=== PATIENT | female | born 1995 | race Hispanic/Latino ===

== ENCOUNTER 2019-06-23 13:25 | Emergency (ER) | payer SELFPAY ==
--- OUTSIDE RECORDS SUMMARY | 2019-06-23 13:27 | XMS REPORT ---
:1995 Author Organization [facility] Address [address] [place] [address] Care Team Providers Name Role Phone AMANDA DAVIS Unavailable Unavailable Problems This patient has no known problems. Allergies, Adverse Reactions, Alerts This patient has no known allergies or adverse reactions. Medications This patient has no known medications. Results Test Description Test Time Test Comments Text Results Atomic Results Result Comments AMYLASE AND LIPASE 2017-06-26 19:31:00 Test Item Value Reference Range Comments AMYLASE (test code=10A) 39 U/L 28-100 LIPASE (test code=60A) 229 IU/L 73-393 COMPREHENSIVE METABOLIC [id number] 19:31:00 Test Item Value Reference Range Comments GLUCOSE (test code=06D) 84 mg/dL 75-100 SODIUM (test code=01A) 136 mmol/L 136-145 POTASSIUM (test code=01B) 3.5 mmol/L 3.6-5.1 CHLORIDE (test code=04A) 104 mmol/L 98-107 CO2 (test code=02A) 24 mmol/L 22-32 ANION GAP (test code=ANG) 11.5 mmol/L BUN (test code=05D) 13 mg/dL 7-18 CREATININE (test code=03E) 0.7 mg/dL 0.4-1.1 BUN/CREA (test code=BCR) 18 12-20 CALCIUM (test code=09D) 9.1 mg/dL 8.3-9.5 BILI TOTAL (test code=11A) 0.8 mg/dL 0.2-1.0 PROTEIN (test code=07D) 8.6 g/dL 6.4-8.2 ALBUMIN (test code=08D) 4.1 g/dL 3.5-4.8 GLOBULIN (test code=GLB) 4.5 g/dL 1.5-3.8 ALB/GLOB (test code=AGRR) 0.9 1.0-2.6 ALK PHOS (test code=35A) 155 IU/L 42-121 AST (test code=30A) 23 IU/L <=42 ALT (test code=31A) 34 IU/L <=78 CT STONE PROTOCOL [id number] 19:14:34CT SCAN OF THE ABDOMEN AND PELVIS WITHOUT CONTRASTLocation: [id number] HISTORY: Right flank pain with history of kidney stoneTECHNIQUE: Helical CT of the abdomen and pelvis was performed without IV ororal contrast without complication. Coronal and Sagittal reconstructions wereobtained. Up-to-date CT equipment, automatic exposure control, and radiationdose reduction techniques were utilized.DLP: 789 mGY* cmComparison study 12/31/15FINDINGS:The visualized lung bases are clear. No evidence of pleural effusion. Liveris normal in size without intrahepatic biliary dilatation or focal mass. Thegallbladder is surgically absent. Pancreas , spleen, and adrenal glands arenormal. There is no evidence of hydronephrosis, solid renal mass , orobstructing kidney stone. There is no evidence of pancreatic mass, atrophy,calcification. There is no abdominal free fluid or adenopathy.The bowel is unremarkable without wall thickening or dilatation. There is noevidence of appendicitis, diverticulitis, colitis or bowel obstruction. Normalair-filled appendix is seen on axial image 87. There is obesity.In the pelvis, there is no free fluid or adenopathy present. The bladder andureters are normal. Uterus and adnexa are unremarkable. A tiny phlebolithposterior to the bladder is unchanged compared to prior study.The vascular, bony and muscular structures are unremarkable. IMPRESSION:1. No evidence of urolithiasis or hydronephrosis on the current study.2. No acute findings demonstrated. Prior cholecystectomy. Normal appendix. SERUM [id number] 18:48:00 Test Item Value Reference Range Comments PREG SRM (test code=PGS) NEGATIVE NEGATIVE PRO TIME AND [id number] 18:46:00 Test Item Value Reference Range Comments PT (test code=TT) 11.4 s 9.8-13.6 INR (test code=INR) 1.0 INRH (test code=INRH) SUGGESTED THERAPEUTIC RANGE FOR INR: 2.5 - 3.5 For Patients with Prosthetic Valves or Patients with recurrent Thromboembolic Events 2.0 - 3.0 For Most Other Applications PTT (test code=PTT) 33.6 s 20.2-38.0 PTTH (test code=PTTH) To monitor the effectiveness of heparin, we offer the Anti-Xa (Heparin Assay). It can be used for either unfractionated or LMW Heparin. Order Code is ANTI-XA URINALYSIS WITH [id number] 18:40:00 Test Item Value Reference Range Comments COLOR (test code=COLU) YELLOW YELLOW CLARITY (test code=CLA) CLOUDY CLEAR GLUCOSE UR (test code=UA GLUCOSE) NEGATIVE NEGATIVE BILI UR (test code=BILE) NEGATIVE NEGATIVE KETONES UR (test code=MAINOR) NEGATIVE NEGATIVE SP GRAVITY (test code=SPGR) 1.038 1.005-1.030 PH UR (test code=PH) 6.0 4.5-8.0 PROTEIN UR (test code=PU) NEGATIVE NEGATIVE UROBIL UR (test code=UROQ) 1.0 EU/dL 0.2-1.0 NITRITE UR (test code=NITRITE) NEGATIVE NEGATIVE BLOOD UR (test code=UA BLOOD) TRACE NEGATIVE LEUK ES UR (test code=LEUK) NEGATIVE NEGATIVE WBC UR (test code=UWBC) 4 /HPF 0-5 RBC UR (test code=URBC) 4 /HPF 0-2 EPITH UR (test code=UEPC) FEW /LPF FEW BACTERIA UR (test code=UBACT) MODERATE /HPF NONE CAST UR (test code=CAST) /LPF NONE CRYSTAL UR (test code=CRYU) / LPF NONE MUCUS UR (test code=MUC) / HPF NONE AMORPH UR (test code=LAURY) / HPF NONE TRICH UR (test code=UTRICH) /HPF NONE YEAST UR (test code=UY) /HPF NONE SPERM UR (test code=USPERM) /HPF NONE CBC (INCLUDES AUTOMATED DIFFERENTIAL)2017-06-26 18:37:00 Test Item Value Reference Range Comments WBC (test code=WBC) 15.4 10\S\3/uL 4.5-11.0 RBC (test code=RBC) 4.94 10\S\6/uL 4.30-5.70 HGB (test code=HBG) 14.6 g/dL 12.0-15.5 HCT (test code=HCT) 43.3 % 35.0-44.0 MCV (test code=MCV) 87.7 fL 81.0-99.0 MCH (test code=MCH) 29.6 pg 27.0-31.0 MCHC (test code=MCHC) 33.7 g/dL 32.0-36.0 RDW (test code=RDW) 13.2 % 11.5-14.5 PLT (test code=PLT) 333 10\S\3/uL 130-400 MPV (test code=MPV) 9.8 fL 9.4-12.4 NEUTROP # (test code=NE#) 10.0 10\S\3/uL 1.6-8.0 LYMPH # (test code=LY#) 4.1 10\S\3/uL 1.1-3.5 MONOCYTE # (test code=MO#) 1.0 10\S\3/uL 0.0-1.1 EOSINOPH # (test code=EO#) 0.2 10\S\3/uL 0.0-0.7 BASOPHIL # (test code=BA#) 0.1 10\S\3/uL 0.0-0.3 IG # (test code=IG#) 0.08 10\S\3/uL 0.00-0.06 NRBC # (test code=NRBC#) 0.00 10\S\3/uL 0.00-0.01 NEUTROPH % (test code=NE%) 64.9 % 35.0-73.0 LYMPH % (test code=LY%) 26.3 % 20.0-55.0 MONO % (test code=MO%) 6.3 % 2.5-10.0 EOSINOPH % (test code=EO%) 1.4 % 0.0-5.0 BASOPHIL % (test code=BA%) 0.6 % 0.0-2.0 IG % (test code=IG%) 0.5 % 0.0-0.8 NRBC% (test code=NRBC%) 0.0 % 0.0-0.2 MANDIFF (test code=MDIFF) NO NO RBC MORPH (test code=RBCMOR) NORMAL
--- OUTSIDE RECORDS SUMMARY | 2019-06-23 13:27 | XMS REPORT | Continuity of Care Document ---
:1995 Author Organization [facility] Address [address] [place] [address] Phone Unavailable Care Team Providers Name Role Phone PHYSICIAN, NO Primary Care Physician Unavailable Insurance Providers Guarantor Ivory Dalal Address [address] [place] [phone] Email NONE Payer Self Pay Insurance Subscriber's Name Ivory Dalal Relationship Self / Same As Patient Group Number NA Group Name NA Advance Directives Directive Response Recorded Date/Time Advance Directive on File No 10/07/18 2:58am Name of Surrogate/Decision Maker N/A 10/07/18 2:55am Patient/Family Given Education Material Y - SIGNED 10/07/18...AG 10/07/18 2 :58am R/T Directives? Chief Complaint and Reason for Visit Chief Complaint Abdominal/GI/Nausea/Vomiting Reason for Visit Pyelonephritis Abdominal pain Problems Active ProblemsNo active problem information available. Past Problems Medical Problem Onset Date Status Abdominal pain Unknown Acute Pyelonephritis Unknown Acute Medications No known medications. Social History Social History Problem Response Recorded Date/Time Onset Date Status Hx Physical Abuse No 10/07/2018 2:58am Not Applicable Not Applicable Smoking Status Start Date Stop Date Never smoker Hospital Discharge Instructions No hospital discharge instruction information available. Plan of Care Discharge Date 10/07/18 6:36am Instructions/Education Provided Abdominal Pain, Adult, [id number] Pyelonephritis, Adult, Gfta-zi-Mwed Forms Provided Portal Welcome Letter Prescriptions See Medication Section Referrals NO PHYSICIAN Care Plan and Goals TAKE MEDICATION PRESCRIBED TYLENOL #3, 1-2 TABS BY MOUTH EVERY 4-6 HOURS NEEDED FOR PAIN BACTRIM DS. 1 TAB BY MOUTH TWICE A DAY X 1 WK Functional Status No functional status information available. Allergies, Adverse Reactions, Alerts Allergen Type Severity Reaction Status Last Updated Tramadol ([id number]) Allergy Unknown HIVES RASH Active 10/07/18 Immunizations No immunization information available. Vital Signs Acute Vital Signs Vital Response Date/Time Blood Pressure 127/78 mm Hg 10/07/2018 6:35am Pulse Pulse Rate (adult) 120 beats per minute (60 - 100) 10/07/2018 6:35am Respiratory Rate 18 breaths per minute (10 - 24) 10/07/2018 6:35am Temperature Source Oral 10/07/2018 6:35am Height 4 ft 11 in 10/07/2018 2:58am Weight 185 lb 10/07/2018 2:58am Body Mass Index 37.4 kg/m^2 10/07/2018 2:58am Results Laboratory Results Test Name Result Units Flags Reference Collection Result Comments Date/Time Date/Time White Blood Count 18.6 K/ul H 4.0-11.5 10/07/2018 10/07/2018 3:30am 3:41am Red Blood Count 5.41 M/ul H 3.80-5.20 10/07/2018 10/07/2018 3:30am 3:41am Hemoglobin 16.2 g/dl H 10.5-15.7 10/07/2018 10/07/2018 3:30am 3:41am Hematocrit 47.4 % 34.0-50.0 10/07/2018 10/07/2018 3:30am 3:41am Mean Corpuscular 87.7 fl 78-98 10/07/2018 10/07/2018 Volume 3:30am 3:41am Mean Corpuscular 30.0 pg 26.2-33.4 10/07/2018 10/07/2018 Hemoglobin 3:30am 3:41am Mean Corpuscular 34.2 g/dl 31.5-36.2 10/07/2018 10/07/2018 Hemoglobin Concent 3:30am 3:41am Red Cell 12.0 % 11.5-15.5 10/07/2018 10/07/2018 Distribution Width 3:30am 3:41am Platelet Count 370 K/ul H 137-338 10/07/2018 10/07/2018 3:30am 3:41am Mean Platelet 7.6 fl L 8.4-11.8 10/07/2018 10/07/2018 Volume 3:30am 3:41am Neutrophils (%) 67.1 % 44.4-80.1 10/07/2018 10/07/2018 (Auto) 3:30am 3:41am Lymphocytes (%) 28.3 % 10.0-50.0 10/07/2018 10/07/2018 (Auto) 3:30am 3:41am Monocytes (%) 3.6 % 3.6-12.04 10/07/2018 10/07/2018 (Auto) 3:30am 3:41am Eosinophils (%) 0.4 % 0.0-5.41 10/07/2018 10/07/2018 (Auto) 3:30am 3:41am Basophils (%) 0.7 % 0.0-0.79 10/07/2018 10/07/2018 (Auto) 3:30am 3:41am Urine Color YELLOW 10/07/2018 10/07/2018 4:50am 5:10am Urine Appearance CLEAR CLEAR 10/07/2018 10/07/2018 4:50am 5:10am Urine Glucose NEGATIVE NEGATIVE 10/07/2018 10/07/2018 4:50am 5:10am Urine Bilirubin NEGATIVE NEGATIVE 10/07/2018 10/07/2018 4:50am 5:10am Urine Ketones 3+(LARGE) H NEGATIVE 10/07/2018 10/07/2018 4:50am 5:10am Urine Specific 1.022 1.003-1.03 10/07/2018 10/07/2018 [place] 0 4:50am 5:10am Urine Blood NEGATIVE NEGATIVE 10/07/2018 10/07/2018 4:50am 5:10am Urine pH 7.000 5-9 10/07/2018 10/07/2018 4:50am 5:10am Urine Protein 1+ (30 H NEGATIVE 10/07/2018 10/07/2018 mg/dL) 4:50am 5:10am Urine Urobilinogen NORMAL mg/dL 0.2-1.0 10/07/2018 10/07/2018 4:50am 5:10am Urine Nitrate NEGATIVE NEGATIVE 10/07/2018 10/07/2018 4:50am 5:10am Urine Leukocyte NEGATIVE NEGATIVE 10/07/2018 10/07/2018 Esterase 4:50am 5:10am Urine RBC 11-14 /hpf H 0-5 10/07/2018 10/07/2018 4:50am 5:10am Urine WBC 1-5 /hpf 0-5 10/07/2018 10/07/2018 4:50am 5:10am Urine Epithelial 1-5 /hpf 0-5 10/07/2018 10/07/2018 Cells 4:50am 5:10am Urine Bacteria TRACE /hpf None 10/07/2018 10/07/2018 Detect 4:50am 5:10am Urine Casts 6-10 /lpf H None 10/07/2018 10/07/2018 Detect 4:50am 5:10am Urine Culture YES 10/07/2018 10/07/2018 Reflexed 4:50am 5:10am Random Glucose 96 mg/dL 74-106 10/07/2018 10/07/2018 3:30am 3:58am Blood Urea 8 mg/dL 6-20 10/07/2018 10/07/2018 Nitrogen 3:30am 3:58am Serum Osmolality 274 L 280-300 10/07/2018 10/07/2018 3:30am 3:58am Creatinine 0.7 mg/dL 0.50-0.90 10/07/2018 10/07/2018 3:30am 3:58am Glomerular > 60.00 10/07/2018 10/07/2018 GFR RESULTS ARE REPORTED IN mL/min/1.73m2. Filtration Rate 3:30am 3:58am Calc Normal GFR: >60mL/min Moderately decreased GFR: 30-59 mL/min Severely decreased GFR: 15-29 mL/min Kidney Failure (or Dialysis): <15 mL/min The calculated eGFR is not valid for patients younger than 18 years or older than 75 years. BUN/Creatinine 11.4 L 12-20 10/07/2018 10/07/2018 Ratio 3:30am 3:58am Sodium Level 138 mmol/L 135-145 10/07/2018 10/07/2018 3:30am 3:58am Potassium Level 3.6 mmol/L 3.5-5.2 10/07/2018 10/07/2018 3:30am 3:58am Chloride Level 102 mmol/L 98-108 10/07/2018 10/07/2018 3:30am 3:58am Carbon Dioxide 21 mmol/L 21-32 10/07/2018 10/07/2018 Level 3:30am 3:58am Anion Gap 18.6 mEq/L 12-20 10/07/2018 10/07/2018 3:30am 3:58am Calcium Level 10.2 mg/dL H 8.6-10.0 10/07/2018 10/07/2018 3:30am 3:58am Total Protein 8.9 g/dL H 6.6-8.7 10/07/2018 10/07/2018 3:30am 3:58am Albumin 5.0 g/dL 3.5-5.2 10/07/2018 10/07/2018 3:30am 3:58am Globulin 3.9 gm/dL 10/07/2018 10/07/2018 3:30am 3:58am Albumin/Globulin 1.3 >1.0 10/07/2018 10/07/2018 Ratio 3:30am 3:58am Total Bilirubin 0.7 mg/dL 0.0-1.2 10/07/2018 10/07/2018 3:30am 3:58am Aspartate Amino 20 U/L 15-32 10/07/2018 10/07/2018 Transf (AST/SGOT) 3:30am 3:58am Alanine 29 U/L 0-33 10/07/2018 10/07/2018 Aminotransferase 3:30am 3:58am (ALT/SGPT) Total Alkaline 149 U/L H 35-105 10/07/2018 10/07/2018 Phosphatase 3:30am 3:58am Beta HCG, 0.1 mIU/mL 0-5 10/07/2018 10/07/2018 REFERENCE RANGES Quantitative 3:30am 4:21am NORMAL: NON- PREMENOPAUSAL POST-MENOPAUSAL <7 Weeks of Gestation Expected Result mIU/mL 3 5.8 - 71.2 4 9.5 - 750 5 217 - 7,138 6 158 - 31,795 7 3697 - 163,563 8 32,065 - 149,571 9 63,803 - 151,410 10 46,509 - 186,977 12 27,832 - 210,612 14 13,950 - 62,530 15 12,039 - 70,971 16 9,040 - 56,451 17 8,175 - 55,868 18 8,099 - 58,176 Procedures Procedure Status Date Provider(s) Non-obstetrical transvaginal ultrasound of Completed 10/07/18 ROBBY COULTER MD pelvis Encounters Encounter Location Arrival/Admit Date Discharge/Depart Date Attending Provider Departed [place] 10/07/18 2:49am 10/07/18 6:36am [place] [facility] ROBBY Lizama MD [facility] Recent Diagnosis
[2019-06-23] MEDS ORDERED: ONDANSETRON 4 MG/2 ML VIAL ONE (15:07)
[2019-06-23] MEDS ORDERED: KETOROLAC 30 MG/ML INJ ONE (15:07)
[2019-06-23 15:37] LABS: Absolute Lymphocytes (CBC) 3.9 K/uL (0.7-4.9); Basophils % 0.6 % (0-1.3); Hematocrit 42.9 % (36.0-45.0); Lymphocytes % 29.9 % (15.3-44.8); MPV 8.7 fL (7.6-11.3); RBC Red Blood Cell Count 4.79 M/uL (3.86-4.86)
[2019-06-23 15:39] LABS: ALT/SGPT 29 U/L (12-78); AST/SGOT 18 U/L (15-37); Albumin 3.5 g/dL (3.4-5.0); Alkaline Phosphatase 156 U/L (45-117); BUN Blood Urea Nitrogen 12 mg/dL (7-18); Bicarbonate 26 mmol/L (21-32); Bilirubin Direct < 0.1 mg/dL (0-0.2); Bilirubin Total 0.2 mg/dL (0.2-1.0); Glucose Level 85 mg/dL (74-106); Lipase 183 U/L (73-393); Potassium 3.9 mmol/L (3.5-5.1); Protein, Total 7.7 g/dL (6.4-8.2); Sodium Level 141 mmol/L (136-145)
[2019-06-23 15:48] LABS: Urine Blood TRACE (NEG); Urine Glucose NEGATIVE (NEG); Urine Protein TRACE (NEG); Urine pH 6.5 (5.0-7.0)
--- NOTE | 2019-06-23 16:11 | RAD REPORT ---
EXAM DESCRIPTION: CT - Abdomen Pelvis W Contrast - 06/23/2019 3:56 pm CLINICAL HISTORY: Abdominal pain, rectal bleeding COMPARISON: None. TECHNIQUE: Biphasic, helical CT imaging of the abdomen and pelvis was performed following 100 ml non -ionic IV contrast. No oral contrast administered. All CT scans are performed using dose optimization technique as appropriate and may include automated exposure control or mA/KV adjustment according to patient size. FINDINGS: No suspicious findings in the lung bases. The liver, spleen, and pancreas show no suspicious findings. Liver is borderline fatty infiltrated. C holecystectomy clips are present. No biliary tree dilatation. Symmetric renal function is seen with no hydronephrosis or suspicious renal mass. No pyelonephritis o r acute parenchymal process. No bladder abnormalities. No adrenal abnormalities. No dilated bowel loops or bowel wall thickening. Appendix is normal. No free air, free fluid or infla mmatory stranding. No hernia, mass or bulky lymphadenopathy. Uterus and ovaries show no suspicious f indings. No suspicious bony findings. IMPRESSION: Contrast enhanced CT abdomen and pelvis showing no significant or suspicious finding. N o abnormality seen to explain rectal bleeding.
--- NOTE | 2019-06-23 16:41 | EDPHYS ---
Physician Documentation [facility] Name: Ivory Dalal Age: 23 yrs Sex: Female : 1995 Arrival Date: 06/23/2019 Time: 13:28 Bed 15 Private MD: ED Physician Deshawn Christiansen HPI: 06/23 14:10 This 23 yrs old Female presents to ER via Ambulatory with complaints of pm1 Abdominal Pain. 14:10 The patient presents with abdominal pain in the epigastric area. Onset: The pm1 symptoms/episode began/occurred 2 week(s) ago. The symptoms do not radiate. Associated signs and symptoms: Pertinent positives: rectal bleeding today. Trace amount of bright red blood on stool and toilet patient, Pertinent negatives: nausea, vomiting, and diarrhea, chest pain, constipation, shortness of breath. The symptoms are described as crampy. Modifying factors: The symptoms are alleviated by protonix. Severity of pain: in the emergency department the pain has improved. The patient has been recently seen by a physician: in Presented with the same complaint ot epigastric pain at [place] [facility] and diagnosed with gastritis. Prescribed Protonix and epigastric pain improving with it. has GI appointment end of this month. Patient with onset of blood on her stool today and presented to ER. TAR POT MAN: 13:50 LMP N/A - Irregular menses rb1 Historical: - Allergies: 13:31 tramadol; hj - PMHx: 13:31 Kidney stones; hj - PSHx: 13:31 Cholecystectomy; hj - Immunization history:: Adult Immunizations up to date. - Ebola Screening: : Patient negative for fever greater than or equal to 101.5 degrees Fahrenheit, and additional compatible Ebola Virus Disease symptoms. - Social history:: Smoking status: Patient/guardian denies using tobacco. ROS: 14:10 Constitutional: Negative for fever, chills, and weight loss, Eyes: Negative for injury, pm1 pain, redness, and discharge, ENT: Negative for injury, pain, and discharge, Neck: Negative for injury, pain, and swelling, Cardiovascular: Negative for chest pain, palpitations, and edema, Respiratory: Negative for shortness of breath, cough, wheezing, and pleuritic chest pain. 14:10 Back: Negative for injury and pain, : Negative for injury, bleeding, discharge, and swelling, MS/Extremity: Negative for injury and deformity, Skin: Negative for injury, rash, and discoloration, Neuro: Negative for headache, weakness, numbness, tingling, and seizure. 14:10 Abdomen/GI: Positive for abdominal pain, rectal bleeding, of the epigastric area, Negative for nausea, vomiting, and diarrhea. Exam: 14:10 Constitutional: This is a well developed, well nourished patient who is awake, alert, pm1 and in no acute distress. Head/Face: Normocephalic, atraumatic. Eyes: Pupils equal round and reactive to light, extra-ocular motions intact. Lids and lashes normal. Conjunctiva and sclera are non-icteric and not injected. Cornea within normal limits. Periorbital areas with no swelling, redness, or edema. ENT: Nares patent. No nasal discharge, no septal abnormalities noted. Tympanic membranes are normal and external auditory canals are clear. Oropharynx with no redness, swelling, or masses, exudates, or evidence of obstruction, uvula midline. Mucous membranes moist. Neck: Trachea midline, no thyromegaly or masses palpated, and no cervical lymphadenopathy. Supple, full range of motion without nuchal rigidity, or vertebral point tenderness. No Meningismus. Chest/axilla: Normal chest wall appearance and motion. Nontender with no deformity. No lesions are appreciated. Cardiovascular: Regular rate and rhythm with a normal S1 and S2. No gallops, murmurs, or rubs. Normal PMI, no JVD. No pulse deficits. Respiratory: Lungs have equal breath sounds bilaterally, clear to auscultation and percussion. No rales, rhonchi or wheezes noted. No increased work of breathing, no retractions or nasal flaring. 14:10 Back: No spinal tenderness. No costovertebral tenderness. Full range of motion. Skin: Warm, dry with normal turgor. Normal color with no rashes, no lesions, and no evidence of cellulitis. MS/ Extremity: Pulses equal, no cyanosis. Neurovascular intact. Full, normal range of motion. 14:10 Abdomen/GI: Inspection: abdomen appears normal, Bowel sounds: normal, Palpation: soft, mild abdominal tenderness, in the epigastric area, mass, is not appreciated, rebound tenderness, is not appreciated. 14:10 Neuro: Orientation: is normal, Motor: is normal, moves all fours. Vital Signs: 13:32 BP 135 / 80; Pulse 77; Resp 18; Temp 98.5(O); Pulse Ox 99% on R/A; Weight 83.91 kg; hj Height 4 ft. 11 in. (149.86 cm); Pain 7/10; 14:30 BP 117 / 80; Pulse 67; Resp 15; Temp 98.5(O); Pulse Ox 98% on R/A; Pain 6/10; rb1 15:30 BP 114 / 76; Pulse 69; Resp 17; Temp 98.3(O); Pulse Ox 99% on R/A; Pain 4/10; rb1 16:30 BP 105 / 65; Pulse 61; Resp 16; Temp 98.1(O); Pulse Ox 99% on R/A; Pain 3/10; rb1 17:15 BP 130 / 87; Pulse 64; Resp 16; Temp 98.7(O); Pulse Ox 97% on R/A; Pain 3/10; rb1 13:32 Body Mass Index 37.37 (83.91 kg, 149.86 cm) hj MDM: 14:05 Patient medically screened. [facility] 16:39 Data reviewed: vital signs. Data interpreted: Pulse oximetry: on room air is 99 %. pm1 Interpretation: normal. Counseling: I had a detailed discussion with the patient and/or guardian regarding: the historical points, exam findings, and any diagnostic results supporting the discharge/admit diagnosis, lab results, radiology results, the need for outpatient follow up, for definitive care, a director shopper marketing, to return to the emergency department if symptoms worsen or persist or if there are any questions or concerns that arise at home. 16:40 ED course: Patient does not want me to look at anus to evaluate for possible cause of pm1 rectal bleeding. 06/23 14:08 Order name: Basic Metabolic Panel; Complete Time: 15:46 pm1 06/23 14:08 Order name: CBC with Diff; Complete Time: 15:47 pm1 06/23 14:08 Order name: Creatinine for Radiology; Complete Time: 15:47 pm1 06/23 14:08 Order name: Hepatic Function; Complete Time: 15:47 pm1 06/23 14:08 Order name: Lipase; Complete Time: 15:47 pm1 06/23 15:06 Order name: Urine Dipstick--Ancillary (enter results); Complete Time: 15:49 bd 06/23 14:08 Order name: IV Saline Lock; Complete Time: 14:54 pm1 06/23 14:08 Order name: Labs collected and sent; Complete Time: 14:54 pm1 06/23 14:08 Order name: Urine Dipstick-Ancillary (obtain specimen); Complete Time: 15:08 pm1 06/23 14:08 Order name: Urine Test (obtain specimen); Complete Time: 15:08 pm1 06/23 14:08 Order name: CT Abd/Pelvis - IV Contrast Only; Complete Time: 16:36 pm1 06/23 15:06 Order name: Urine --Ancillary (enter results); Complete Time: 15:49 bd Administered Medications: 15:09 Drug: TORadol 30 mg Route: IVP; Site: right antecubital; rb1 15:30 Follow up: Response: No adverse reaction; Pain is decreased rb1 15:09 Drug: Zofran 4 mg Route: IVP; Site: right antecubital; rb1 15:30 Follow up: Response: No adverse reaction; Nausea is decreased rb1 Disposition: 06/24 07:13 Co-signature as Attending Physician, Deshawn Christiansen MD I agree with the assessment and yuliet plan of care. Disposition: 06/23/19 16:40 Discharged to Home. Impression: Unspecified abdominal pain. - Condition is Stable. - Discharge Instructions: Abdominal Pain, Adult. - Prescriptions for Bentyl 20 mg Oral Tablet - take 1 tablet by ORAL route every 6 hours As needed; 20 tablet. Zofran 4 mg Oral Tablet - take 1 tablet by ORAL route every 12 hours As needed; 20 tablet. - Work release form, Medication Reconciliation Form, Thank You Letter, Antibiotic Education, Prescription Opioid Use form. - Follow up: Emergency Department; When: As needed; Reason: Worsening of condition. Follow up: Private Physician; When: 2 - 3 days; Reason: Recheck today's complaints, Continuance of care, Re-evaluation by your physician. - Problem is new. - Symptoms have improved. Signatures: Dispatcher [employer] Deshawn Carpenter MD MD cha Joaquin, Henry, RN RN hj Barber, Rebecca RN RN rb1 Turner Kwong, TASHA GROUP DIRECTOR EXPERIENCE pm1 Corrections: (The following items were deleted from the chart) 06/23 17:20 16:40 06/23/2019 16:40 Discharged to Home. Impression: Unspecified abdominal pain. rb1 Condition is Stable. Forms are Medication Reconciliation Form, Thank You Letter, Antibiotic Education, Prescription Opioid Use. Follow up: Emergency Department; When: As needed; Reason: Worsening of condition. Follow up: Private Physician; When: 2 - 3 days; Reason: Recheck today's complaints, Continuance of care, Re-evaluation by your physician. Problem is new. Symptoms have improved. pm1
--- NOTE | 2019-06-23 16:41 | ER ---
Nurse's Notes [facility] Name: Ivory Dalal Age: 23 yrs Sex: Female : 1995 Arrival Date: 06/23/2019 Time: 13:28 Bed 15 Private MD: Diagnosis: Unspecified abdominal pain Presentation: 06/23 13:29 Presenting complaint: Patient states: ramon been bleeding from my bottom today, i went to [facility] and ramon been diagnosed with gastritis, today, i saw fresh blood in my poop, denies hemorrhoids; denies N/V; reports abd pain;. Transition of care: patient was not received from another setting of care. Onset of symptoms was June 23, 2019. Risk Assessment: Do you want to hurt yourself or someone else? Patient reports no desire to harm self or others. Initial Sepsis Screen: Does the patient meet any 2 criteria? No. Patient's initial sepsis screen is negative. Does the patient have a suspected source of infection? No. Patient's initial sepsis screen is negative. Care prior to arrival: None. 13:29 Method Of Arrival: Ambulatory 13:29 Acuity: RAVI 3 SPEEDER TENDER: 13:50 LMP N/A - Irregular menses rb1 Historical: - Allergies: 13:31 tramadol; - PMHx: 13:31 Kidney stones; - PSHx: 13:31 Cholecystectomy; - Immunization history:: Adult Immunizations up to date. - Ebola Screening: : Patient negative for fever greater than or equal to 101.5 degrees Fahrenheit, and additional compatible Ebola Virus Disease symptoms. - Social history:: Smoking status: Patient/guardian denies using tobacco. Screenin:50 Abuse screen: Denies threats or abuse. Nutritional screening: No deficits noted. rb1 Tuberculosis screening: No symptoms or risk factors identified. Fall Risk None identified. Assessment: 13:50 General: Appears in no apparent distress. comfortable, Behavior is calm, cooperative. rb1 Pain: Complains of pain in epigastric area Pain currently is 6 out of 10 on a pain scale. Neuro: Level of Consciousness is awake, alert, obeys commands, Oriented to person, place, time, situation. Cardiovascular: Capillary refill < 3 seconds is brisk in bilateral fingers. Respiratory: Airway is patent Respiratory effort is even, unlabored, Respiratory pattern is regular, symmetrical. GI: Bowel sounds present X 4 quads. Abd is soft Abdomen is tender to palpation in epigastric area Reports nausea. : No signs and/or symptoms were reported regarding the genitourinary system. Derm: Skin is pink, warm \T\ dry. 13:50 Musculoskeletal: Range of motion: intact in all extremities. rb1 14:44 Reassessment: Patient appears in no apparent distress at this time. Patient and/or rb1 family updated on plan of care and expected duration. Pain level reassessed. Patient is alert, oriented x 3, equal unlabored respirations, skin warm/dry/pink. 15:43 Reassessment: Patient appears in no apparent distress at this time. No changes from rb1 previously documented assessment. 16:40 Reassessment: Patient appears in no apparent distress at this time. Patient and/or rb1 family updated on plan of care and expected duration. Pain level reassessed. Patient is alert, oriented x 3, equal unlabored respirations, skin warm/dry/pink. Patient states feeling better. 17:15 Reassessment: Patient appears in no apparent distress at this time. No changes from rb1 previously documented assessment. Family at bedside. Vital Signs: 13:32 BP 135 / 80; Pulse 77; Resp 18; Temp 98.5(O); Pulse Ox 99% on R/A; Weight 83.91 kg; hj Height 4 ft. 11 in. (149.86 cm); Pain 7/10; 14:30 BP 117 / 80; Pulse 67; Resp 15; Temp 98.5(O); Pulse Ox 98% on R/A; Pain 6/10; rb1 15:30 BP 114 / 76; Pulse 69; Resp 17; Temp 98.3(O); Pulse Ox 99% on R/A; Pain 4/10; rb1 16:30 BP 105 / 65; Pulse 61; Resp 16; Temp 98.1(O); Pulse Ox 99% on R/A; Pain 3/10; rb1 17:15 BP 130 / 87; Pulse 64; Resp 16; Temp 98.7(O); Pulse Ox 97% on R/A; Pain 3/10; rb1 13:32 Body Mass Index 37.37 (83.91 kg, 149.86 cm) ED Course: 13:28 Patient arrived in ED. as 13:31 Triage completed. hj 13:32 Arm band placed on left wrist. hj 13:47 Turner Kwong NP is PHCP. pm1 13:48 Deshawn Christiansen MD is Attending Physician. pm1 13:50 Patient has correct armband on for positive identification. Bed in low position. Call rb1 light in reach. Side rails up X 1. Pulse ox on. NIBP on. Warm blanket given. 14:00 Inserted saline lock: 22 gauge in right antecubital area, using aseptic technique. rb1 Blood collected. 14:14 Loretta Whitlock, RN is Primary Nurse. rb1 14:44 Radiology exam delayed due to lab results not completed at this time. (BUN/Creatinine). sj 15:34 Radiology exam delayed due to lab results not completed at this time. (BUN/Creatinine). vm2 15:58 CT completed. Patient tolerated procedure well. Patient moved to CT. Patient moved back ok from CT. 16:00 CT Abd/Pelvis - IV Contrast Only In Process Unspecified. EDMS 17:20 No provider procedures requiring assistance completed. IV discontinued, intact, rb1 bleeding controlled, No redness/swelling at site. Pressure dressing applied. Administered Medications: 15:09 Drug: TORadol 30 mg Route: IVP; Site: right antecubital; rb1 15:30 Follow up: Response: No adverse reaction; Pain is decreased rb1 15:09 Drug: Zofran 4 mg Route: IVP; Site: right antecubital; rb1 15:30 Follow up: Response: No adverse reaction; Nausea is decreased [facility] Outcome: 16:40 Discharge ordered by MD. pm1 17:20 Patient left the ED. rb1 17:20 Discharged to home ambulatory, with family. rb1 17:20 Condition: stable 17:20 Discharge instructions given to patient, Instructed on discharge instructions, follow up and referral plans. medication usage, Demonstrated understanding of instructions, follow-up care, medications, Prescriptions given X 2. Signatures: Dispatcher [employer] EDID Amanda Hobson Amelia as Joaquin, Henry, RN RN Loretta Whitlock, CHRIST RN [facility] Turner Kwong NP CRYPTOGRAPHY TEACHER pm1 Eyal Cha Victoria 2
== END 2019-06-23 17:20 | disposition home or self-care (01) ==
LOC: ER 13:25
DX: R10.13 Epigastric pain (principal); Z88.5 Allergy status to narcotic agent; Z87.442 Personal history of urinary calculi
CPT/HCPCS: 36415; 74177; 80048; 80076; 81003; 81025; 83690; 85025; 96374; 96375; 99284; J2405; Q9967